=== PATIENT | male | born 1965 | race African-American/Black ===

== ENCOUNTER 2017-12-06 10:07 | Emergency (ER) | payer MEDICAID ==
[2017-12-06] MEDS: NAPROXEN 500 MG TABLET PO ×2 (10:47)
[2017-12-06] MEDS: HYDROcodone/APAP 5/325MG 1 TAB TABLET PO ×2 (10:47)
== END 2017-12-06 11:05 | disposition home or self-care (01) ==
LOC: ER 10:07
DX: L03.011 Cellulitis of right finger (principal); L02.01 Cutaneous abscess of face
CPT/HCPCS: 10060; 99283